=== PATIENT | male | born 1965 | race African-American/Black ===

== ENCOUNTER 2017-05-11 11:28 | Emergency (ER) | payer OTHER ==
[~2017-05-11] VITALS: Ht 177.8 cm; Wt 140.0 kg
[2017-05-11 12:18] LABS: BASOPHILS % 0.8 % (0.0-2.0); EOSINOPHILS % 2.3 % (0.0-5.0); HEMATOCRIT. 38.7 % (42.0-52.0); LYMPHOCYTES % 30.7 % (20.0-50.0); MEAN CORPUSCULAR HEMOGLOBIN 30.1 pg (28.0-32.0); MEAN CORPUSCULAR VOLUME 89.4 fL (80.0-94.0); MEAN PLATELET VOLUME 6.8 fl (7.4-10.4); MONOCYTES % 8.2 % (2.0-8.0); PLATELET 260 x1000/uL (130-400); RED BLOOD CELL COUNT 4.33 mill/uL (4.7-6.1); RED CELL DISTRIBUTION WIDTH 13.9 % (11.6-14.6)
[2017-05-11 12:25] LABS: INR 0.9; PROTHROMBIN TIME 9.8 sec
[2017-05-11 12:32] LABS: AMMONIA 45 uMol/L (<32)
[2017-05-11 12:34] LABS: CARBON DIOXIDE 31 mEq/L (21-32); CHLORIDE 103 mEq/L (98-107); ETHANOL BLOOD < 10 mg/dL
[2017-05-11 13:04] LABS: *AMPHETAMINES SCREEN URINE NEGATIVE (NEGATIVE); *BARBITURATES SCREEN URINE NEGATIVE (NEGATIVE); *BENZODIAZEPINES SCREEN URINE NEGATIVE (NEGATIVE); *COCAINE SCREEN URINE NEGATIVE (NEGATIVE); CANNABINOID URINE SCREEN NEGATIVE (NEGATIVE); METHADONE URINE SCREEN NEGATIVE (NEGATIVE); OPIATES URINE SCREEN NEGATIVE (NEGATIVE); PHENCYCLIDINE URINE SCREEN NEGATIVE (NEGATIVE)
[2017-05-11] MEDS ORDERED: LACTULOSE 20G/30ML UDC PO ONE (14:30)
[2017-05-11 16:58] VITALS: BP 143/102
== END 2017-05-11 17:22 | disposition short-term general hospital (02) ==
LOC: ER 11:28
DX: G93.49 Other encephalopathy (principal)
CPT/HCPCS: 36415; 70450; 80053; 80305; 82140; 85025; 85610; 99285; G0482; Z7610